=== PATIENT | male | born 1945 ===

== ENCOUNTER → 2016-10-10 | Outpatient (CLI) | payer MEDICARE, OTHER ==
[~2016-10-10] MED LIST: ASPIRIN325 MG PO; TUMS REGULAR ST1 TAB PO
== END | disposition disaster alternative care site (69) ==
LOC: LHSC 15:55
DX: K63.5 Polyp of colon (principal); K62.1 Rectal polyp; D69.6 Thrombocytopenia, unspecified; K57.30 Diverticulosis of large intestine without perforation or abscess without bleeding

== ENCOUNTER 2017-01-14 14:49 | Observation (INO) | payer MEDICARE, OTHER ==
[~2017-01-14] VITALS: Ht 175.3 cm; Wt 97.8 kg
--- NOTE | ~2017-01-14 | CON ---
PATIENT'S NAME: NERI LANZA [facility] AGE: 71 Y [address] ROOM: [place] [address] [place]: [facility] [place] ADMIT DATE: 01/14/2017 Consultation DISCHARGE DATE: FAMILY PHYSICIAN: Janis Biggs MD ATTENDING PHYSICIAN: DYLAN PEARCE DATE OF CONSULTATION: 01/14/2017 REASON FOR CONSULTATION: Polypectomy removal. HISTORY OF PRESENT ILLNESS: This is a pleasant, 71-year-old gentleman who was originally seen in our office by Dr. Dylan Pearce. The patient underwent a colonoscopy by Dr. Liana Ferguson as he was found to have a large sessile distal right colon polyp, which was biopsied showing adenoma. The polyp was not removed at that time secondary to the patient having thrombocytopenia thought to be related to idiopathic. He does follow with Dr. Hilton where his platelets normally run around 60,000 to 80,000. He was then referred to a [employer] design maker where the patient apparently had difficulty tolerating the colon prep as the polyp was unable to be removed at that time, secondary to a low platelet count as well. He was seen in our clinic on December 26, 2016. The patient again had significant difficulty with colon prep as well as concern for thrombocytopenia. He was admitted to [facility] for complete workup in regard to thrombocytopenia as well as assistance with a good quality prep for removal of polyp. The patient was seen and examined. He denies any pain at this time. No chest pain, chest pressure, shortness of breath. He also denies any abdominal pain, blood in the stool, nausea, or vomiting. 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 PAST SURGICAL HISTORY: Colonoscopy in September 2016, previous rotator cuff tear arthroscopy. SOCIAL HISTORY: Negative for smoking or alcohol use. FAMILY HISTORY: The patient denies any family history of known colon cancer to his knowledge. PATIENT'S NAME: NERI LANZA [facility] AGE: 71 Y [address] ROOM: [place] [address] LOCATION: [facility] [place] ADMIT DATE: 01/14/2017 Consultation DISCHARGE DATE: FAMILY PHYSICIAN: Janis Biggs MD ATTENDING PHYSICIAN: DYLAN PEARCE ALLERGIES: SULFA. CURRENT MEDICATIONS: Please refer to the medication administration record. REVIEW OF SYSTEMS: An all point review of systems was completed. All were negative except for those identified in the history of present illness. PHYSICAL EXAMINATION: GENERAL: The patient is a pleasant 71-year-old male, sitting in bed, who appears to be in no acute distress. VITAL SIGNS: Temperature 97.3, pulse of 65, respirations of 16, blood pressure 143/82, oxygen saturation is 96% on room air. SKIN: [place], warm, dry. No jaundice. HEENT: Head is normocephalic and atraumatic. Pupils are equal, round, and reactive to light. Sclerae are clear. Nonicteric. Oral mucosa is pink and moist. No thyromegaly. NECK: Soft and supple. CARDIOVASCULAR: Regular normal S1, S2. RESPIRATORY: Respirations are even and unlabored. Lungs clear to auscultation. ABDOMEN: Soft, round, nontender, and nondistended. Bowel sounds positive x4 quadrants. MUSCULOSKELETAL: No muscle weakness or atrophy. EXTREMITIES: No clubbing, cyanosis, or edema. NEUROLOGICAL: Grossly nonfocal. LABS AND DIAGNOSTICS: Laboratory was reviewed on admission, showing a white blood cell count of 4.1, hemoglobin of 16.6, hematocrit of 48.5, and platelets of 60. Chemistry panel includes a glucose of 87, BUN of 12, creatinine of 1.0, sodium 142, potassium of 4.0, chloride of 109, CO2 of 25, ProTime 10.7, INR is 1.02. ASSESSMENT AND PLAN: Again, this is a very pleasant, 71-year-old gentleman who was admitted for thrombocytopenia in preparation for a colonoscopy with assistance with quality prep. 1. Colon polyp. The patient does need to undergo colonoscopy for removal of adenomatous polyp. In regard to his thrombocytopenia, the patient was admitted as this was discussed with his hematology team including Dr. Marcus and Dr. Andrew Spring. Per discussion with them, platelet count of greater than 50,000 should be okay for polypectomy in lieu of his bone marrow biopsy showing possibility of idiopathic. The patient will be PATIENT'S NAME: NERI LANZA [facility] AGE: 71 Y [address] ROOM: [place] [address] LOCATION: [facility] [place] ADMIT DATE: 01/14/2017 Consultation DISCHARGE DATE: FAMILY PHYSICIAN: Janis Biggs MD ATTENDING PHYSICIAN: DYLAN PEARCE given Suprep in preparation for the procedure. He will also be pre- treated with Zofran to assist in his nausea prior to the prep administration. Risks, benefits, and alternatives were discussed with the patient per Dr. Willy Olsen. Further recommendations to be given status post colonoscopy. Thank you for this consult. YOLIS SWAIN APRN FOR WILLY OLSEN MD MMF/modl /[id number] d: 01/15/17 1348 t: 01/18/17 1719, CONSULTATION REPORT
--- NOTE | ~2017-01-14 | CON ---
PATIENT'S NAME: NERI LANZA [facility] AGE: 71 Y [address] ROOM: [address] [address] [place] [facility] [place]: 01/14/2017 Consultation DISCHARGE DATE: FAMILY PHYSICIAN: Janis Biggs MD ATTENDING PHYSICIAN: DYLAN PEARCE Preprocedure informed consent note. Please refer to my written note also. Essentially, this is a 71-year-old white male who has been scheduled for elective colonoscopy. He was found to have a large polyp on the colonoscopy exam by Dr. Ferguson. In view of his thrombocytopenia, he was referred to a content development manager in [place]. Unfortunately, could not get it done there. Subsequently was seen by Dr. Pearce and he was scheduled for colonoscopy here. I had a detailed discussion with the patient and his . He has basically had idiopathic thrombocytopenia. He has been worked up extensively and no etiology has been found. I had a detailed discussion with the patient regarding referral to a highest level of care. He is very keen to get it done here. The procedure of colonoscopy along with polypectomy and increased risk in view of his thrombocytopenia was clearly discussed. I have also discussed with Dr. Spring as well as Dr. Marcus. They are of the opinion that the platelet count above 50,000 will be safe to proceed with the procedure, including colonoscopy and polypectomy. Again, this was discussed in much detail to the patient. Clearly, I informed him of the risks including bleeding, perforation, and possible need for surgery. He does seem to understand that. He has given us informed consent. The patient will be transfused a unit of platelets prior to his procedure. This was also done in conjunction with anesthesia. MD EVON ZAPIEN/emelina /[id number] d: 01/15/17 1629 t: 01/15/17 1806, CONSULTATION REPORT
--- NOTE | ~2017-01-14 | CON ---
PATIENT'S NAME: NERI LANZA [facility] AGE: 71 Y [address] ROOM: [id number] [place], [place] [address] [place] [facility] [place]: 01/14/2017 Consultation DISCHARGE DATE: FAMILY PHYSICIAN: Janis Biggs MD ATTENDING PHYSICIAN: DYLAN PEARCE DATE OF CONSULTATION: 01/14/2017 REFERRING PROVIDER: Dr. Tolbert. CHIEF COMPLAINT/REASON FOR CONSULTATION: Need for polyp removal in the setting of thrombocytopenia. HISTORY OF PRESENT ILLNESS: This is a 71-year-old male who has a history of idiopathic thrombocytopenia, who underwent a routine colonoscopy in September 2016 by his family provider, Dr. Ferguson. There, he was found to have a large sessile polyp that was found. It was biopsied, but was not removed. I was verbally told that this was an adenoma. He was then referred to the Gastroenterology specialist in [place] for complete removal. He underwent a transfusion of platelets at quality rep, Dr. Isi Hilton' office prior to attempting preparation. He had a lot of difficulties with the prep and associated complications with the thrombocytopenia that it was reportedly canceled. Now he was referred to the local [facility] in which he has been admitted to the hospital for anticipated colonoscopy with polyp removal and possible need for platelets transfusion. We have been asked to assist in medical management in consultation. 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 He has a past medical history to include idiopathic thrombocytopenia and generalized arthritis. He denies any recent illnesses. He denies any weight loss or weight gain. He denies any problems with his vision or with his hearing. He does have a full set of dentures, after removal of his teeth when he was 29 years old. He denies any sore throat. He denies any chest pain, palpitations, or irregular heart rhythms. He denies any history of heart murmurs. He denies any swelling in his lower extremities or any PND. He denies any shortness of breath or cough. He denies any chronic lung conditions. He denies being a smoker. He denies any nausea, vomiting, diarrhea, or constipation. He denies any melena in his stool. He does complain of generalized arthritic pains throughout multiple joint sites, but does not take any medicine for them. He denies any lightheadedness or dizziness. He denies any heat or cold intolerances. He denies any polyphagia, polyuria, or polydipsia. PATIENT'S NAME: NERI LANZA [facility] AGE: 71 Y [address] ROOM: [address] [address] [place] [facility] [place]: 01/14/2017 Consultation DISCHARGE DATE: FAMILY PHYSICIAN: Janis Biggs MD ATTENDING PHYSICIAN: DYLAN PEARCE REVIEW OF SYSTEMS: A 13-point review of systems was completed and was deemed negative other than mentioned above in the HPI. PAST MEDICAL HISTORY: Includes: 1. Idiopathic thrombocytopenia. 2. Generalized arthritis. 3. History of mixed hyperlipidemia. 4. Adenomatous polyp. 5. History of bradycardia. 6. History of chronic rhinitis. PAST SURGICAL HISTORY: 1. Rotator cuff repair, 2001. 2. Left knee arthroscopy, 2000. 3. Hydrocelectomy, 1999. 4. Rhinoplasty in 1995 secondary to facial trauma. FAMILY MEDICAL HISTORY: Reviewed with the patient and was deemed noncontributory. Negative for colon or prostate cancer. 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 He denies any smoking history. He occasionally uses alcohol. There is no illicit drug use. He does drink a large amount of caffeine by soda pop during the day. ALLERGIES: ALLERGY LIST: SULFA PRODUCES A RASH. MEDICATIONS: None at the present time. PHYSICAL EXAMINATION: VITAL SIGNS: Reveal a temperature of 97.3, orally; heart rate of 65; respiratory rate of 16; oxygen saturation of 96% on room air; and blood pressure of 143/82. Weight is query. GENERAL: A 71-year-old male, white who is in no distress, sitting on the edge of the bed and cooperative to examination. HEENT: His head is normocephalic and atraumatic. He is balding. Eyes; extraocular movements are intact. His nose is midline. There is a slight abnormality on the bridge of his nose from previous surgery. His posterior pharynx is visualized and without any redness or exudate. He has full dentures both top and bottom present with good dentition. Good mucosa that PATIENT'S NAME: NERI LANZA [facility] AGE: 71 Y [address] ROOM: [id number] [place], [place] [address] [place] [facility] [place]: 01/14/2017 Consultation DISCHARGE DATE: FAMILY PHYSICIAN: Janis Biggs MD ATTENDING PHYSICIAN: [place] appears very moist. NECK: Supple without any lymphadenopathy or thyromegaly. CHEST: Shows equal symmetric expansion. LUNGS: Clear throughout all anand. There is no wheezing or unlabored breathing pattern. HEART: Regular rate and rhythm without any gallop or murmur. S1 and S2 present. He has trace pedal edema bilaterally in both lower extremities. ABDOMEN: Soft, nontender, nondistended. Bowel sounds are present. He has no organomegaly appreciated. He has no CVA tenderness. GENITOURINARY: Deferred. EXTREMITIES: Appear symmetric. He has equal strength in bilateral extremities, rated 5/5. NEUROLOGIC: Cranial nerves 2 through 12 are intact. PSYCHIATRIC: Mood is good. LABORATORY FINDINGS: None available. IMPRESSION AND PLAN: 1. History of idiopathic thrombocytopenia. I have reviewed the records to find that he has had two bone marrow biopsies, one in 2005 which showed hypocellular with relative myeloid hypoplasia. There was bone marrow cytogenetics that were unremarkable and the flow cytometry was normal. 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 The patient reports to me that there essentially has been no problems with his [address] Hilton, his quality rep. His platelet counts have remained between 60,000 and 80,000. He has had no bleeding complications. We will obtain a laboratory value to see where his counts are today. I did speak with Dr. Tolbert and Shannon Sanders APRN with Gastroenterology. Her threshold is around 70,000 for bleeding risks associated with the planned procedure of removal of the colon polyp. We will transfuse accordingly. We do have a hematologic/oncologic specialist and we will consult them only as needed. 2. Need for colon polyp removal. My understanding is this sessile polyp is around 3 cm in size by previous examination and will require an EMR polypectomy per Gastroenterology Services. We will try to obtain the count to reduce bleeding risk as recommended by the rn birthing. We will monitor for any complications. We will assist with any symptomatic management of complications with the prep as he has had previous history of nausea and vomiting with the past prep. We do recommend the use of Suprep for volume reduction in this patient's case. 3. Generalized arthritis. 4. Obesity. Lifestyle modification and diet education was given. The above line of management was discussed with the patient who stated PATIENT'S NAME: NERI LANZA [facility] AGE: 71 Y [address] ROOM: [place] [address] [place] [facility] [place]: 01/14/2017 Consultation DISCHARGE DATE: FAMILY PHYSICIAN: Janis Biggs MD ATTENDING PHYSICIAN: DYLAN PEARCE complete understanding and agreement. The above line of management was also discussed with Dr. Benavides, attending physician, who was in agreement with the plan. Further recommendations are forthcoming from laboratory findings. Thank you for this consultation of this interesting and kind gentleman. PENNY BRAR APRN, APRN FOR MD MAX GRAFF/emelina /[id number] d: t: 01/14/17 2354, CONSULTATION REPORT
--- NOTE | ~2017-01-14 | CON ---
PATIENT'S NAME: NERI LANZA [facility] AGE: 71 Y [address] ROOM: [place] [id number] [place] [facility] [place]: 01/14/2017 Consultation DISCHARGE DATE: FAMILY PHYSICIAN: Janis Biggs MD ATTENDING PHYSICIAN: DYLAN PEARCE DATE OF CONSULTATION: 01/15/2017 CONSULTATION NOTE REQUESTING PHYSICIAN: Linette Tolbert MD CHIEF COMPLAINT: Large sessile polyp of the colon near hepatic flexure. HISTORY OF PRESENT ILLNESS: The patient is a 71-year-old gentleman, who had polyps removed about 10 years ago during a colonoscopy. Recently he had a repeat screening exam done that had several small polyps removed, but also had a larger sessile polyp near the hepatic flexure that could not be removed at that time. Biopsy showed a benign adenoma without significant dysplasia. The patient has had difficulty with bowel preps. He was admitted last night for bowel prep and then went for a repeat colonoscopy today. A small polyp was removed from the cecum. The larger sessile polyp was re-biopsied and tattooed. It was not felt to be amenable to endoscopic removal. PAST MEDICAL HISTORY: Positive for idiopathic thrombocytopenia. PAST SURGICAL HISTORY: His previous surgeries include: 1. Rotator cuff surgery. 2. Left knee arthroscopy. 3. Hydrocelectomy. 4. Rhinoplasty. FAMILY HISTORY: Negative for colon or prostate cancer. MEDICATIONS: Include: Aspirin and calcium carbonate on a p.r.n. basis. ALLERGIES: SULFA PRODUCES A RASH AND THEN LIKE I SAID HE HAS HAD A DIFFICULT TIME WITH PATIENT'S NAME: NERI LANZA [facility] AGE: 71 Y [address] ROOM: [address] [address] [place] [facility] [place]: 01/14/2017 Consultation DISCHARGE DATE: FAMILY PHYSICIAN: Janis Biggs MD ATTENDING PHYSICIAN: DYLAN PEARCE BOWEL PREPS IN THE PAST. 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 There is no drug use. No smoking history. He drinks alcohol rarely. REVIEW OF SYSTEMS: Really unremarkable other than some cholesterol problems and runny nose at times. PHYSICAL EXAMINATION: VITAL SIGNS: Documented in the nursing notes and all within normal limits. Sats are 96%. HEENT: Normocephalic and atraumatic. Pupils are equal. There is no scleral icterus. External ears, nose, and eyelids unremarkable. NECK: Trachea is midline. There are no masses or adenopathy. RESPIRATORY: Breathing is nonlabored. Lungs are clear to auscultation without rales, rhonchi, or wheezing. HEART: Regular rate and rhythm. ABDOMEN: Soft, is mildly distended. There are good bowel sounds. There is no tenderness. EXTREMITIES: No deformities. No cyanosis or clubbing. He moves all 4 extremities well. He has palpable distal pulses. ASSESSMENT: A 71-year-old gentleman with large sessile polyp near the hepatic flexure that has not been felt to be removable endoscopically, right now the pathology is still pending. This was complicated slightly by his thrombocytopenia, but generally his platelets stay above 50,000 so I do not think this is a big issue. PLAN: The patient is going to call next week for the biopsy results. He is going to make arrangements and we will plan on admitting him for a robotic-assisted laparoscopic right hemicolectomy. He would like to be admitted the night before for bowel prep. MD LISA COURTNEY/emelina PATIENT'S NAME: NERI LANZA [facility] AGE: 71 Y [address] ROOM: [address] [address] [place]: [facility] [place]: 01/14/2017 Consultation DISCHARGE DATE: FAMILY PHYSICIAN: Janis Biggs MD ATTENDING PHYSICIAN: DYLAN PEARCE /[id number] d: 01/15/172311 t: 01/19/17 1400, CONSULTATION REPORT
[2017-01-14] MEDS ORDERED: ASPIRIN325 MG PO (17:41)
[2017-01-14] MEDS ORDERED: TUMS REGULAR ST1 TAB PO (17:41)
[2017-01-14 19:40] LABS: BASOPHIL % 0.2 %; EOSINOPHIL # 0.2 K/uL (0.0-0.5); EOSINOPHIL % 5.3 %; HEMATOCRIT 48.5 % (37.0-53.0); HEMOGLOBIN 16.6 g/dL (11.0-16.0); IMMATURE GRANULOCYTE % 0.2 %; LYMPHOCYTE # 1.5 K/uL (0.8-4.0); LYMPHOCYTE % 35.8 %; MCH 31.1 pg (27.0-34.0); MCHC 34.2 gm/dL (32.0-36.5); MCV 90.8 fl (83.0-98.0); MONOCYTE # 0.4 K/uL (0.0-1.0); MONOCYTE % 10.4 %; MPV 9.8 fl (9.4-12.4); NEUTROPHIL % 48.1 %; NRBC % 0 /100WBC (0-0.00); PLATELET COUNT 60 K/uL (150-450); RBC 5.34 M/uL (3.50-5.50); RDW-CV 14.1 % (11.9-14.6); WBC 4.1 K/uL (4.0-11.0)
[2017-01-14 19:47] LABS: INR - (THERAPEUTIC) 1.02 (0.92-1.07); PROTIME 10.7 SECONDS (9.8-11.4)
[2017-01-14 19:54] LABS: BLOOD UREA NITROGEN 12 mg/dL (6-24); CALCIUM 8.2 mg/dL (8.5-10.5); CHLORIDE 109 mMol/L (96-110); CO2 25 mMol/L (22-32); ESTIMATED GFR (MDRD EQUATION) > 60; SODIUM 142 mMol/L (135-145)
--- NOTE | 2017-01-15 07:47 | NUR ---
Significant Event: PATIENT IS ALERT AND ORIENTATED X3 UP AT [facility] IN ROOM. VSS WNL ON RA. IV TO R FA SL. PERMITS SIGNED WITH CHECK LIST ON CHART FOR PROCEDURE THIS AM. PATIENT DRANK FIRST PREP CONTAINER 100% SECOND ONE HE DRANK 1/2 OF AND REFUSED REST. PHYSICIAN NOTIFIED 2 TAP WATER ENEMA'S WERE ORDER ONE HOUR APPART TO FINISH PREP. Follow up:
--- NOTE | 2017-01-15 15:18 | NUR ---
Introduced self and care management services to patient. Lives in [place] with . Denies concerns about going home on discharge, independent at home. Says he is waiting to talk with surgeon as may have further surgery. Will follow and assist with dc planning as needs identified.
--- NOTE | 2017-01-15 15:33 | NUR ---
Significant Event: Patient up as tolerated in room. Down to endoscopy at 1050 and back to floor at 1315. Dr. Tolbert was unable to remove polyp so patient returned to floor and Dr. Spivey was consulted. Have not seen Dr. Spivey yet, but he did tell Dr. Tolbert it would be a couple of hours before he would be able to see the patient. Patient on clear liquids until decision can be made regarding patient's plan of care. Denies pain and nausea. Family at bedside. Encouraged them to walk with patient in hallway. Patient did receive a unit of platelets today over 3 hours. Follow up: Continue to monitor.
--- NOTE | 2017-01-15 20:17 | NUR ---
pt is a/o x3. discharge instructions reviewed, pt had no further questions at this time. iv's were discontinued and secured with ana and coban. vss, afebrile. no c/o pain. pt was assisted to dress then taken to front entrance by wheel chair for transport by private auto to [facility].
== END 2017-01-15 20:15 | disposition disaster alternative care site (69) ==
LOC: GPOC 14:49 → GMSU 14:50 → GPOC 14:51 → GMSU 15:00
PROVIDERS: Nurse Practitioner Family; ADMIT Internal Medicine Gastroenterology
PROC: 0DBH8ZX Excision of Cecum, Via Natural or Artificial Opening Endoscopic, Diagnostic (ICD-10-PCS; principal; 2017-01-15)
PROC: 0DBK8ZX Excision of Ascending Colon, Via Natural or Artificial Opening Endoscopic, Diagnostic (ICD-10-PCS; 2017-01-15)
PROC: 3E0H8GC Introduction of Other Therapeutic Substance into Lower GI, Via Natural or Artificial Opening Endoscopic (ICD-10-PCS; 2017-01-15)
DX: D12.0 Benign neoplasm of cecum (principal); D12.2 Benign neoplasm of ascending colon; R00.1 Bradycardia, unspecified; E78.2 Mixed hyperlipidemia; D69.3 Immune thrombocytopenic purpura; M19.90 Unspecified osteoarthritis, unspecified site; E66.9 Obesity, unspecified; Z68.31 Body mass index [BMI] 31.0-31.9, adult; Z88.2 Allergy status to sulfonamides; Z98.890 Other specified postprocedural states
CPT/HCPCS: G0378; J2001; J2405; J7030; J7050; P9035